=== PATIENT | female | born 1985 | race Caucasian/White ===

== ENCOUNTER 2017-10-16 07:09 | Day surgery (SDC) | payer MEDICAID ==
[~2017-10-16 07:09] MED LIST: CEFAZOLIN 2 GM/50 ML (PMX) 50 ML IVPB; SOD CHLORIDE 0.9% 1,000 ML IV
[2017-10-16 09:55] LABS: ADD MAN DIFF? NO
[2017-10-16 10:05] LABS: ALANINE AMINOTRANSFERASE 37 IU/L (13-69); ALBUMIN 4.2 g/dl (3.3-4.9); ALBUMIN/GLOBULIN RATIO 1.44; ALKALINE PHOSPHATASE 51 IU/L (42-121); ANION GAP 15 (8-16); ASPARTATE AMINO TRANSFERASE 23 IU/L (15-46); BILIRUBIN,INDIRECT 0.2 mg/dl (0-1.1); BILIRUBIN,TOTAL 0.2 mg/dl (0.2-1.3); CARBON DIOXIDE 30 mmol/L (21-31); CHLORIDE 107 mmol/L (97-110); GLUCOSE 84 mg/dl (70-220); TOTAL PROTEIN 7.1 g/dl (6.1-8.1)
[2017-10-16 10:09] LABS: WHITE BLOOD COUNT 6.8 10^3/ul (4.8-10.8)
[2017-10-16 10:09] LABS: BASOPHILS % 0.6 % (0.0-2.0); BLOOD UREA NITROGEN 9 mg/dl (7-20); CREATININE 0.61 mg/dl (0.44-1.00); EOSINOPHILS # 0.1 10^3/ul (0.0-0.5); HEMATOCRIT 37.6 % (37.0-47.0); HEMOGLOBIN 12.8 g/dl (12.0-16.0); LYMPHOCYTES # 2.5 10^3/ul (0.8-2.9); LYMPHOCYTES % 36.7 % (15.0-51.0); MEAN CORPUSCULAR HEMOGLOBIN 30.8 pg (29.0-33.0); MEAN CORPUSCULAR VOLUME 90.4 fl (82.0-101.0); MEAN PLATELET VOLUME 12.6 fl (7.4-10.4); MONOCYTE # 0.6 10^3/ul (0.3-0.9); MONOCYTES % 8.2 % (0.0-11.0); NEUTROPHIL # 3.6 10^3/ul (1.6-7.5); NEUTROPHILS % 53.2 % (39.0-77.0); PLATELET COUNT 211 10^3/UL (140-415); POTASSIUM 4.5 mmol/L (3.5-5.1); RED BLOOD COUNT 4.16 10^6/ul (4.20-5.40)
[2017-10-16 10:10] LABS: SODIUM 147 mmol/L (135-144)
[2017-10-16 10:12] LABS: INR 0.98; PROTIME 13.1 Sec (11.9-14.9)
[2017-10-16 10:13] LABS: PARTIAL THROMBOPLASTIN TIME 29.9 Sec (25.0-35.0)
[2017-10-16] MEDS ORDERED: BUPIVACAINE 0.5% (SDV) 30 ML INJ (10:55)
[2017-10-16] MEDS ORDERED: LIDOCAINE 1%/EPI 30 ML INJ (10:55)
[2017-10-16] MEDS ORDERED: FENTAnyl 50 MCG/ML VIAL (11:04)
[2017-10-16] MEDS ORDERED: MIDAZOLAM 1 MG/ML 2 ML INJ (11:04)
[2017-10-16] MEDS ORDERED: PROPOFOL 20 ML (11:15)
[2017-10-16] MEDS ORDERED: CEFAZOLIN 1 GM INJ (11:15)
[2017-10-16] MEDS ORDERED: LIDOCAINE 2% (SDV) 5 ML INJ (11:15)
[2017-10-16] MEDS ORDERED: ONDANSETRON 4 MG INJ (11:16)
[2017-10-16] MEDS ORDERED: ONDANSETRON 4 MG INJ IV (12:00)
[2017-10-16] MEDS ORDERED: HYDROCODONE/APAP (7.5/325) TAB PO (12:00)
[2017-10-16] MEDS ORDERED: METOCLOPRAMIDE 10 MG INJ IV (12:00)
[2017-10-16] MEDS ORDERED: MEPERIDINE 25 MG INJ IV (12:00)
[2017-10-16] MEDS ORDERED: FENTAnyl 50 MCG/ML VIAL IV (12:00)
[2017-10-16] MEDS ORDERED: HYDROmorphONE (0.2 MG/ML) 10ML SYG IV ×2 (12:00)
[2017-10-16] MEDS ORDERED: DIPHENHYDRAMINE 50 MG INJ IV (12:00)
== END 2017-10-16 13:50 | disposition home or self-care (01) ==
LOC: SDS 07:09
DX: D24.2 Benign neoplasm of left breast (principal)
CPT/HCPCS: 19120; 80053; 85025; 85610; 85730; 88307